=== PATIENT | female | born 1930 | race Caucasian/White ===

== ENCOUNTER 2019-11-08 19:12 | Emergency (ER) | payer MEDICARE, BC ==
--- NOTE | 2019-11-08 19:29 | EDM.PDOC ---
ED HPI GENERAL MEDICAL PROBLEM - General Chief Complaint: Trauma Stated Complaint: AMBULANCE Time Seen by Provider: 11/08/19 19:25 Source of Information: Reports: Patient, EMS History Limitations: Reports: No Limitations - History of Present Illness INITIAL COMMENTS - FREE TEXT/NARRATIVE: EMS arrived @ scene with pt lying on back. told by family pt fell and rolled her onto her back. pt states was closing curtain and lost balance and fell and hit head on something. denies LOC c/o pain right side of head and legs too. daughter arrived state pt was closing curtain and fell hitting right side of head on coffee table and broke the wooden part but not the glass. was found lying on right side and gently rolled her onto her back and called EMS. - Related Data Allergies Allergy/AdvReac Type Severity Reaction Status Date / Time cefdinir [From Omnicef] Allergy Diarrhea Verified 09/12/18 11:15 cefditoren [From Spectracef] Allergy Diarrhea Verified 09/12/18 11:15 ciprofloxacin Allergy Diarrhea Verified 09/12/18 11:15 desloratadine [From Clarinex] Allergy Vomiting Verified 09/12/18 11:15 diltiazem Allergy Cannot Verified 09/12/18 13:56 Remember fexofenadine [From Anette] Allergy Cannot Verified 09/12/18 11:15 Remember latex Allergy Rash Verified 09/12/18 11:15 phenoperidine Allergy Headache Verified 09/12/18 11:15 Sulfa (Sulfonamide Allergy Rash Verified 09/12/18 11:15 Antibiotics) yellow dye Allergy Cannot Verified 09/12/18 11:15 Remember Vitamin B6 Allergy Hives Uncoded 09/12/18 11:15 Home Meds: Home Meds Aspirin 325 mg PO DAILY 09/12/18 [History] Clopidogrel Bisulfate [Clopidogrel] 75 mg PO DAILY 09/12/18 [History] Cyanocobalamin (Vitamin B-12) [Cyanocobalamin Injection] 1,000 mcg IJ ASDIRECTED 09/12/18 [History] Losartan [Cozaar] 100 mg PO DAILY 09/12/18 [History] Metoprolol Succinate [Toprol XL] 200 mg PO DAILY 09/12/18 [History] Omeprazole 20 mg PO DAILY 09/12/18 [History] atorvaSTATin [Lipitor] 20 mg PO BEDTIME 09/12/18 [History] Acetaminophen [Tylenol] 650 mg PO Q4H PRN #30 tablet 09/14/18 [Rx] Acetaminophen/HYDROcodone [[place] 325-10 MG] 0.5 tab PO Q4H PRN #10 tablet [Rx] Lidocaine 5% [Lidoderm 5%] 1 patch TOP DAILY #7 patch 09/14/18 [Rx] Past Medical History HEENT History: Reports: Cataract Cardiovascular History: Reports: High Cholesterol, Hypertension Respiratory History: Reports: None Gastrointestinal History: Reports: Hemorrhoids Genitourinary History: Reports: UTI, Recurrent Other Genitourinary History: only right kidney works, 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 SLAB TRIPPER History: Reports: None Musculoskeletal History: Reports: Arthritis Neurological History: Reports: None Psychiatric History: Reports: None Endocrine/Metabolic History: Reports: None Hematologic History: Reports: None Immunologic History: Reports: None Oncologic (Cancer) History: Reports: None - Infectious Disease History Infectious Disease History: Reports: Shingles - Past Surgical History Head Surgeries/Procedures: Reports: None HEENT Surgical History: Reports: Cataract Surgery, Naso-Sinus Surgery, Tonsillectomy, Other (See Below) Other HEENT Surgeries/Procedures: new ear drum, patched ear drum, Cardiovascular Surgical History: Reports: Other (See Below) Other Cardiovascular Surgeries/Procedures: stenosis surgery GI Surgical History: Reports: Appendectomy, Hernia, Abdominal, Other (See Below) Other GI Surgeries/Procedures: hemorroid surgery Female Surgical History: Reports: Hysterectomy, Other (See Below) Other Female Surgeries/Procedures: bladder repair Musculoskeletal Surgical History: Reports: Carpal Tunnel, Other (See Below) Other Musculoskeletal Surgeries/Procedures:: toe surgery, knee surgery, fluid on knee, cyst on ankle, broken wrist, broken arm Dermatological Surgical History: Reports: Skin Biopsy Social & Family History - Family History Family Medical History: Noncontributory - Caffeine Use Caffeine Use: Reports: Coffee Review of Systems - Review of Systems Review Of Systems: Comprehensive ROS is negative, except as noted in HPI. ED EXAM, GENERAL - Physical Exam Exam: See Below Exam Limited By: No Limitations General Appearance: Alert, WD/WN, No Apparent Distress Eye Exam: Bilateral Eye: PERRL (pupils ER @ 3mm) Ears: Hearing Grossly Normal Throat/Mouth: Normal Voice, No Airway Compromise Head: Other (no O/B, ) Neck: Other (in C-collar) Respiratory/Chest: No Respiratory Distress, Lungs Clear, Normal Breath Sounds, Chest Non-Tender Cardiovascular: Regular Rate, Rhythm GI/Abdominal: Soft, Non-Tender Extremities: Other (some pelvic discomfort bilaterally,) Neurological: Alert, Oriented, Normal Cognition, No Motor/Sensory Deficits Psychiatric: Normal Affect, Normal Mood Skin Exam: Warm, Dry, Normal Color Lymphatic: No Adenopathy Course - Orders/Labs/Meds Orders: Active Orders 24 hr Category Date Time Status EKG 12 Lead [EKG Documentation Completion] [RC] STAT Care 11/08/19 19:22 Active Cervical Spine wo Cont [CT] Urgent Exams 11/08/19 19:21 Taken Chest 1V Frontal [CR] Urgent Exams 11/08/19 19:21 Taken Head wo Cont [CT] Urgent Exams 11/08/19 19:21 Taken Pelvis wo Cont [CT] Urgent Exams 11/08/19 19:21 Taken Labs: Laboratory Tests 11/08/19 11/08/19 Range/Units 19:20 19:20 WBC 9.0 (5.0-10.0) 10^3/uL RBC 3.83 L (4.2-5.4) 10^6/uL Hgb 8.4 L D (12.0-16.0) g/dL Hct 28.1 L (37.0-47.0) % MCV 73.4 L D (80-100) fL MCH 21.9 L (27.0-34.0) pg MCHC 29.9 L (33.0-35.0) g/dL Plt Count 341 D (150-450) 10^3/uL Neut % (Auto) 84.6 H (42.2-75.2) % Lymph % (Auto) 10.1 L (20.5-50.1) % [place] % (Auto) 3.9 (2-8) % Eos % (Auto) 1.2 (1.0-3.0) % Baso % (Auto) 0.2 (0.0-1.0) % Sodium 134 L (135-145) mmol/L Potassium 3.9 (3.6-5.0) mmol/L Chloride 98 L (101-111) mmol/L Carbon Dioxide 25.0 (21.0-31.0) mmol/L Anion Gap 14.9 BUN 40 H (7-18) mg/dL Creatinine 1.1 (0.6-1.3) mg/dL Est Cr Clr Drug Dosing TNP Estimated GFR (MDRD) 47 BUN/Creatinine Ratio 36.36 Glucose 182 H (74-105) mg/dL Calcium 8.1 L (8.4-10.2) mg/dl Total Bilirubin 0.5 (0.2-1.0) mg/dL AST 17 (10-42) IU/L ALT 14 (10-60) IU/L Alkaline Phosphatase 50 (42-121) IU/L Troponin I < 0.02 (0.00-0.02) ng/ml Total Protein 5.9 L (6.7-8.2) g/dl Albumin 2.4 L (3.2-5.5) g/dl Globulin 3.5 Albumin/Globulin Ratio 0.69 - Re-Assessments/Exams Free Text/Narrative Re-Assessment/Exam: 11/08/19 20:09 results discussed with daughter who states will try to contact PMD in attempt to admit pt to [facility] Departure - Departure Time of Disposition: 20:10 Disposition: Home, Self-Care 01 Condition: Good Clinical Impression: Contusion of parietal region of scalp Qualifiers: Encounter type: initial encounter Qualified Code(s): S00.03XA - Contusion of scalp, initial encounter - Discharge Information Instructions: Head Injury, Adult, [id number] Forms: ED Department Discharge Additional Instructions: 1) follow up with family doctor 2) return if there is any change or concern Sepsis Event Note - Focused Exam Date Exam was Performed: 11/08/19 Time Exam was Performed: 20:09 - My Orders Last 24 Hours: My Active Orders 11/08/19 19:21 Cervical Spine wo Cont [CT] Urgent Chest 1V Frontal [CR] Urgent Head wo Cont [CT] Urgent Pelvis wo Cont [CT] Urgent 11/08/19 19:22 EKG 12 Lead [EKG Documentation Completion] [RC] STAT - Assessment/Plan Last 24 Hours: My Active Orders 11/08/19 19:21 Cervical Spine wo Cont [CT] Urgent Chest 1V Frontal [CR] Urgent Head wo Cont [CT] Urgent Pelvis wo Cont [CT] Urgent 11/08/19 19:22 EKG 12 Lead [EKG Documentation Completion] [RC] STAT
[2019-11-08 19:42] LABS: ANION GAP 14.9; CHLORIDE,CL 98 mmol/L (101-111); SODIUM,NA 134 mmol/L (135-145)
== END 2019-11-08 20:18 | disposition home or self-care (01) ==
LOC: DL.ED 19:12
DX: S00.03XA Contusion of scalp, initial encounter (principal); W19.XXXA Unspecified fall, initial encounter; Z88.2 Allergy status to sulfonamides; Z88.8 Allergy status to other drugs, medicaments and biological substances; Z88.1 Allergy status to other antibiotic agents; Z91.040 Latex allergy status; Z79.82 Long term (current) use of aspirin; Z79.899 Other long term (current) drug therapy; E78.00 Pure hypercholesterolemia, unspecified; I10 Essential (primary) hypertension; Z87.440 Personal history of urinary (tract) infections; M19.90 Unspecified osteoarthritis, unspecified site; Z90.710 Acquired absence of both cervix and uterus
CPT/HCPCS: 36415; 70450; 71045; 72125; 72192; 80053; 84484; 85025; 99283; 99285-25

== ENCOUNTER 2019-11-28 10:50 | Emergency (ER) | payer MEDICARE, BC ==
[2019-11-28 10:44] LABS: ANION GAP 12.4; CHLORIDE,CL 102 mmol/L (101-111); SODIUM,NA 135 mmol/L (135-145)
--- NOTE | 2019-11-28 10:53 | EDM.PDOC ---
ED HPI GENERAL MEDICAL PROBLEM - General Stated Complaint: UNKNOWN-AMBULANCE Time Seen by Provider: 11/28/19 10:25 Source of Information: Reports: Patient, EMS History Limitations: Reports: No Limitations - History of Present Illness INITIAL COMMENTS - FREE TEXT/NARRATIVE: This 89 yo female patient was brought to the ED by [facility] due to a fall. According to the patient, she was sitting in a chair last night, fell asleep and his her forehead on the counter. The patient does not believe that she was knocked out during the incident. The patient reports she was unable to get off the floor all night. The patient does not know why she couldn't get up. The patient reports pain in her forehead and in her mid back. The patient denies any recent illnesses or injuries. Onset Date: 11/27/19 Duration: Constant Location: Reports: Other Quality: Reports: Other Severity: Moderate Improves with: Reports: None Worsens with: Reports: None Context: Reports: Other Associated Symptoms: Reports: No Other Symptoms - Related Data Allergies Allergy/AdvReac Type Severity Reaction Status Date / Time cefdinir [From Omnicef] Allergy Diarrhea Verified 11/08/19 20:21 cefditoren [From Spectracef] Allergy Diarrhea Verified 11/08/19 20:21 ciprofloxacin Allergy Diarrhea Verified 11/08/19 20:21 desloratadine [From Clarinex] Allergy Vomiting Verified 11/08/19 20:21 diltiazem Allergy Cannot Verified 11/08/19 20:21 Remember fexofenadine [From Anette] Allergy Cannot Verified 11/08/19 20:21 Remember latex Allergy Rash Verified 11/08/19 20:21 phenoperidine Allergy Headache Verified 11/08/19 20:21 Sulfa (Sulfonamide Allergy Rash Verified 11/08/19 20:21 Antibiotics) yellow dye Allergy Cannot Verified 11/08/19 20:21 Remember Vitamin B6 Allergy Hives Uncoded 11/08/19 20:21 Home Meds: Home Meds Aspirin 81 mg PO DAILY 09/12/18 [History] Clopidogrel Bisulfate [Clopidogrel] 75 mg PO DAILY 09/12/18 [History] Cyanocobalamin (Vitamin B-12) [Cyanocobalamin Injection] 1,000 mcg IJ ASDIRECTED 09/12/18 [History] Losartan [Cozaar] 100 mg PO DAILY 09/12/18 [History] Metoprolol Succinate [Toprol XL] 200 mg PO DAILY 09/12/18 [History] Omeprazole 20 mg PO DAILY 09/12/18 [History] atorvaSTATin [Lipitor] 20 mg PO BEDTIME 09/12/18 [History] Acetaminophen [Tylenol] 650 mg PO Q4H PRN #30 tablet 09/14/18 [Rx] Acetaminophen/HYDROcodone [[place] 325-10 MG] 0.5 tab PO Q4H PRN #10 tablet [Rx] DULoxetine [Cymbalta] 30 mg PO DAILY 11/08/19 [History] Fluticasone Propionate [Flonase] 1 spray NS DAILY 11/08/19 [History] Iron,Carbonyl/Ascorbic Acid [Iron 100-Vitamin C Tablet] 1 each PO DAILY [History] Sennosides/Docusate Sodium [Senna-Docusate Sodium Tablet] 1 tab PO DAILY [History] Past Medical History HEENT History: Reports: Cataract Cardiovascular History: Reports: High Cholesterol, Hypertension Respiratory History: Reports: None Gastrointestinal History: Reports: Hemorrhoids Genitourinary History: Reports: UTI, Recurrent Other Genitourinary History: only right kidney works, 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 LONG TERM CARE PHLEBOTOMIST History: Reports: None Musculoskeletal History: Reports: Arthritis Neurological History: Reports: None Psychiatric History: Reports: None Endocrine/Metabolic History: Reports: None Hematologic History: Reports: None Immunologic History: Reports: None Oncologic (Cancer) History: Reports: None - Infectious Disease History Infectious Disease History: Reports: Shingles - Past Surgical History Head Surgeries/Procedures: Reports: None HEENT Surgical History: Reports: Cataract Surgery, Naso-Sinus Surgery, Tonsillectomy, Other (See Below) Other HEENT Surgeries/Procedures: new ear drum, patched ear drum, Cardiovascular Surgical History: Reports: Other (See Below) Other Cardiovascular Surgeries/Procedures: stenosis surgery GI Surgical History: Reports: Appendectomy, Hernia, Abdominal, Other (See Below) Other GI Surgeries/Procedures: hemorroid surgery Female Surgical History: Reports: Hysterectomy, Other (See Below) Other Female Surgeries/Procedures: bladder repair Musculoskeletal Surgical History: Reports: Carpal Tunnel, Other (See Below) Other Musculoskeletal Surgeries/Procedures:: toe surgery, knee surgery, fluid on knee, cyst on ankle, broken wrist, broken arm Dermatological Surgical History: Reports: Skin Biopsy Social & Family History - Family History Family Medical History: Noncontributory - Caffeine Use Caffeine Use: Reports: Coffee Review of Systems - Review of Systems Review Of Systems: Comprehensive ROS is negative, except as noted in HPI. ED EXAM, GENERAL - Physical Exam Exam: See Below Exam Limited By: No Limitations General Appearance: Alert, WD/WN, Moderate Distress Eye Exam: Bilateral Eye: EOMI, Normal Inspection, PERRL Ears: Normal External Exam, Normal Canal, Hearing Grossly Normal, Normal TMs Nose: Normal Inspection, Normal Mucosa, No Blood Throat/Mouth: Normal Inspection, Normal Lips, Normal Teeth, Normal Gums, Normal Oropharynx, Normal Voice, No Airway Compromise Head: Other (contusion to the left forehead) Neck: Other (the patient was placed in a c-collar by EMS) Respiratory/Chest: No Respiratory Distress, Lungs Clear, Normal Breath Sounds, No Accessory Muscle Use, Chest Non-Tender Cardiovascular: Normal Peripheral Pulses, Regular Rate, Rhythm, No Edema, No Gallop, No JVD, No Murmur, No Rub GI/Abdominal: Normal Bowel Sounds, Soft, Non-Tender, No Organomegaly, No Distention, No Abnormal Bruit, No Mass (Female) Exam: Deferred Rectal (Female) Exam: Deferred Back Exam: Normal Inspection, Full Range of Motion, NT Extremities: Normal Inspection, Normal Range of Motion, Non-Tender, Normal Capillary Refill, No Pedal Edema Neurological: Alert, Oriented, CN II-XII Intact, Normal Cognition Psychiatric: Normal Affect, Normal Mood Skin Exam: Warm, Dry, Intact, Normal Color, No Rash Lymphatic: No Adenopathy Course - Orders/Labs/Meds Orders: Active Orders 24 hr Category Date Time Status EKG Documentation Completion [RC] URGENT Care 11/28/19 09:59 Ordered CULTURE BLOOD [BC] Stat Lab 11/28/19 09:59 Ordered CULTURE URINE [RM] Urgent Lab 11/28/19 10:28 Received Labs: Laboratory Tests 11/28/19 11/28/19 11/28/19 Range/Units 10:14 10:14 10:14 WBC (5.0-10.0) 10^3/uL RBC (4.2-5.4) 10^6/uL Hgb (12.0-16.0) g/dL Hct (37.0-47.0) % MCV (80-100) fL MCH (27.0-34.0) pg MCHC (33.0-35.0) g/dL Plt Count (150-450) 10^3/uL Neut % (Auto) (42.2-75.2) % Lymph % (Auto) (20.5-50.1) % [place] % (Auto) (2-8) % Eos % (Auto) (1.0-3.0) % Baso % (Auto) (0.0-1.0) % PT 10.4 (9.0-12.0) SEC INR 1.0 (0.9-1.2) Sodium (135-145) mmol/L Potassium (3.6-5.0) mmol/L Chloride (101-111) mmol/L Carbon Dioxide (21.0-31.0) mmol/L Anion Gap BUN (7-18) mg/dL Creatinine (0.6-1.3) mg/dL Est Cr Clr Drug Dosing Estimated GFR (MDRD) BUN/Creatinine Ratio Glucose (74-105) mg/dL Lactic Acid 1.2 (0.5-2.0) mmol/L Calcium (8.4-10.2) mg/dl Total Bilirubin (0.2-1.0) mg/dL AST (10-42) IU/L ALT (10-60) IU/L Alkaline Phosphatase (42-121) IU/L Creatine Kinase 24 L (26-174) IU/L Troponin I (0.00-0.02) ng/ml Total Protein (6.7-8.2) g/dl Albumin (3.2-5.5) g/dl Globulin Albumin/Globulin Ratio Urine Color (YELLOW) Urine Appearance (CLEAR) Urine pH (5.0-9.0) Ur Specific [place] (1.005-1.030) Urine Protein (NEGATIVE) Urine Glucose (UA) (NEGATIVE) Urine Ketones (NEGATIVE) Urine Occult Blood (NEGATIVE) Urine Nitrite (NEGATIVE) Urine Bilirubin (NEGATIVE) Urine Urobilinogen (0.2-1.0) mg/dL Ur Leukocyte Esterase (NEGATIVE) Urine RBC /HPF Urine WBC (0-5/HPF) /HPF Ur Epithelial Cells (NOT SEEN) /HPF Urine Bacteria (0-FEW/HPF) /HPF Urine Mucus (NOT SEEN) /LPF 11/28/19 11/28/19 11/28/19 Range/Units 10:14 10:14 10:28 WBC 7.6 (5.0-10.0) 10^3/uL RBC 4.38 (4.2-5.4) 10^6/uL Hgb 9.6 L (12.0-16.0) g/dL Hct 31.8 L (37.0-47.0) % MCV 72.6 L (80-100) fL MCH 21.9 L (27.0-34.0) pg MCHC 30.2 L (33.0-35.0) g/dL Plt Count 373 (150-450) 10^3/uL Neut % (Auto) 81.9 H (42.2-75.2) % Lymph % (Auto) 11.5 L (20.5-50.1) % [place] % (Auto) 4.8 (2-8) % Eos % (Auto) 1.7 (1.0-3.0) % Baso % (Auto) 0.1 (0.0-1.0) % PT (9.0-12.0) SEC INR (0.9-1.2) Sodium 135 (135-145) mmol/L Potassium 4.4 (3.6-5.0) mmol/L Chloride 102 (101-111) mmol/L Carbon Dioxide 25.0 (21.0-31.0) mmol/L Anion Gap 12.4 BUN 27 H (7-18) mg/dL Creatinine 0.8 (0.6-1.3) mg/dL Est Cr Clr Drug Dosing TNP Estimated GFR (MDRD) > 60 BUN/Creatinine Ratio 33.75 Glucose 89 (74-105) mg/dL Lactic Acid (0.5-2.0) mmol/L Calcium 8.5 (8.4-10.2) mg/dl Total Bilirubin 0.6 (0.2-1.0) mg/dL AST 19 (10-42) IU/L ALT 14 (10-60) IU/L Alkaline Phosphatase 63 (42-121) IU/L Creatine Kinase (26-174) IU/L Troponin I < 0.02 (0.00-0.02) ng/ml Total Protein 6.0 L (6.7-8.2) g/dl Albumin 2.5 L (3.2-5.5) g/dl Globulin 3.5 Albumin/Globulin Ratio 0.71 Urine Color Yellow (YELLOW) Urine Appearance Slightly cloudy (CLEAR) Urine pH 6.5 (5.0-9.0) Ur Specific [place] 1.025 (1.005-1.030) Urine Protein Negative (NEGATIVE) Urine Glucose (UA) Negative (NEGATIVE) Urine Ketones Negative (NEGATIVE) Urine Occult Blood Negative (NEGATIVE) Urine Nitrite Negative (NEGATIVE) Urine Bilirubin Negative (NEGATIVE) Urine Urobilinogen 0.2 (0.2-1.0) mg/dL Ur Leukocyte Esterase Small H (NEGATIVE) Urine RBC Not seen /HPF Urine WBC 10-20 H (0-5/HPF) /HPF Ur Epithelial Cells Moderate H (NOT SEEN) /HPF Urine Bacteria Rare (0-FEW/HPF) /HPF Urine Mucus Not seen (NOT SEEN) /LPF Departure - Departure Time of Disposition: 12:43 Disposition: Home, Self-Care 01 Condition: Fair Clinical Impression: Syncope Qualifiers: Syncope type: unspecified Qualified Code(s): R55 - Syncope and collapse Forehead contusion Qualifiers: Encounter type: initial encounter Qualified Code(s): S00.83XA - Contusion of other part of head, initial encounter - Discharge Information *PRESCRIPTION DRUG MONITORING PROGRAM REVIEWED*: Not Applicable *COPY OF PRESCRIPTION DRUG MONITORING REPORT IN PATIENT [place]: Not Applicable Instructions: Facial or Scalp Contusion, Syncope, [id number] Forms: ED Department Discharge Care Plan Goals: The patient and family were advised of the examination, lab, EKG and CT results during the visit. The patient was encouraged to rest and relax. The patient was also encouraged to use her life alarm for assistance. If the patient has any additional symptoms or concerns, the patient should either return to the emergency department or visit her primary care facility. Sepsis Event Note - Focused Exam Date Exam was Performed: 11/28/19 Time Exam was Performed: 12:43 - My Orders Last 24 Hours: My Active Orders 11/28/19 09:59 EKG Documentation Completion [RC] URGENT CULTURE BLOOD [BC] Stat 11/28/19 10:28 CULTURE URINE [RM] Urgent - Assessment/Plan Last 24 Hours: My Active Orders 11/28/19 09:59 EKG Documentation Completion [RC] URGENT CULTURE BLOOD [BC] Stat 11/28/19 10:28 CULTURE URINE [RM] Urgent
== END 2019-11-28 13:00 | disposition home or self-care (01) ==
LOC: DL.ED 10:50
DX: S00.83XA Contusion of other part of head, initial encounter (principal); R55 Syncope and collapse; I10 Essential (primary) hypertension; Z88.1 Allergy status to other antibiotic agents; Z88.2 Allergy status to sulfonamides; Z91.018 Allergy to other foods; Z91.040 Latex allergy status; Z88.8 Allergy status to other drugs, medicaments and biological substances; Z79.82 Long term (current) use of aspirin; Z79.899 Other long term (current) drug therapy; Z98.49 Cataract extraction status, unspecified eye; Z98.890 Other specified postprocedural states; Z90.710 Acquired absence of both cervix and uterus; Z90.49 Acquired absence of other specified parts of digestive tract; W07.XXXA Fall from chair, initial encounter
CPT/HCPCS: 36415; 70450; 70486; 72125; 80053; 81001; 82550; 83605; 84484; 85025; 85610; 87040; 87086; 93005; 99283; 99285-25

== ENCOUNTER 2020-09-02 09:26 | Emergency (ER) | payer MEDICARE, BC, MEDICAID ==
--- NOTE | 2020-09-02 09:26 | EDM.PDOC ---
ED HPI GENERAL MEDICAL PROBLEM - General Chief Complaint: Syncope Stated Complaint: AMBULANCE Time Seen by Provider: 09/02/20 09:40 Source of Information: Reports: Patient, EMS, EMS Notes Reviewed, RN, RN Notes Reviewed History Limitations: Reports: Altered Mental Status - History of Present Illness INITIAL COMMENTS - FREE TEXT/NARRATIVE: Patient presents to the ED via EMS with complaints of syncope. Per EMS patient experienced a fall with positive LOC while walking to breakfast. She did hit her head; she is on Plavix for history of Atrial Fib. The patient presents confused with a GCS of 14; she is unable to provide a history. Trauma Notes: Fall at [facility]; Positive LOC; In SVT upon arrival Arrival Time: 925 C-Collar Status: Applied Spinal Board/Immobilization Status: Not applied GCS on Arrival: 14 Primary Trauma Survey (929) Airway: Patent nasal and oral airways. Breathing: Spontaneous respirations with clear bilateral breath sounds. Circulation: Heart RRR, intact distal pulses to all four extremities, no cyanosis. Deformity/Disability: No active bleeding. No long bone deformities. No neuro logical deficits. Abdomen benign to exam. Exposure: Skin warm and dry. Right Head Pain Score (Numeric/FACES): 4 - Related Data Allergies Allergy/AdvReac Type Severity Reaction Status Date / Time cefdinir [From Omnicef] Allergy Diarrhea Verified 09/02/20 10:58 cefditoren [From Spectracef] Allergy Diarrhea Verified 09/02/20 10:58 ciprofloxacin Allergy Diarrhea Verified 09/02/20 10:58 desloratadine [From Clarinex] Allergy Vomiting Verified 09/02/20 10:58 diltiazem Allergy Cannot Verified 09/02/20 10:58 Remember fexofenadine [From Anette] Allergy Cannot Verified 09/02/20 10:58 Remember latex Allergy Rash Verified 09/02/20 10:58 phenoperidine Allergy Headache Verified 09/02/20 10:58 Sulfa (Sulfonamide Allergy Rash Verified 09/02/20 10:58 Antibiotics) yellow dye Allergy Cannot Verified 09/02/20 10:58 Remember Vitamin B6 Allergy Hives Uncoded 09/02/20 10:58 Home Meds: Home Meds Aspirin 81 mg PO DAILY 09/12/18 [History] Clopidogrel Bisulfate [Clopidogrel] 75 mg PO DAILY 09/12/18 [History] Cyanocobalamin (Vitamin B-12) [Cyanocobalamin Injection] 1,000 mcg IJ ASDIRECTED 09/12/18 [History] Losartan [Cozaar] 100 mg PO DAILY 09/12/18 [History] Metoprolol Succinate [Toprol XL] 200 mg PO DAILY 09/12/18 [History] atorvaSTATin [Lipitor] 10 mg PO BEDTIME 09/12/18 [History] Acetaminophen [Tylenol] 650 mg PO Q4H PRN #30 tablet 09/14/18 [Rx] DULoxetine [Cymbalta] 30 mg PO DAILY 11/08/19 [History] Fluticasone Propionate [Flonase] 1 spray NS DAILY 11/08/19 [History] Iron,Carbonyl/Ascorbic Acid [Iron 100-Vitamin C Tablet] 1 each PO DAILY 11/08/19 [History] Sennosides/Docusate Sodium [Senna-Docusate Sodium Tablet] 2 tab PO DAILY 11/08/19 [History] Acetaminophen/HYDROcodone [[place] 325-10 MG] 500 mg PO Q4H PRN 02/01/20 [History] Acetaminophen [Tylenol Arthritis Pain] 650 mg PO BID 09/02/20 [History] Acetaminophen/HYDROcodone [[place] 325-10 MG] 1 tab PO DAILY 09/02/20 [History] Dextran 70/Hypromellose/PF [Artificial Tears Drops] 1 each EYEBOTH BID 09/02/20 [History] Lactulose 10 gm PO BEDTIME 09/02/20 [History] Levothyroxine Sodium [Synthroid] 12.5 mcg PO ACBREAKFAST 09/02/20 [History] Pantoprazole Sodium [Protonix] 40 mg PO DAILY 09/02/20 [History] Past Medical History HEENT History: Reports: Cataract Cardiovascular History: Reports: High Cholesterol, Hypertension, HI Respiratory History: Reports: None Gastrointestinal History: Reports: GERD, Hemorrhoids Genitourinary History: Reports: UTI, Recurrent Other Genitourinary History: only right kidney works, 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 COMPENSATION AND BENEFITS MANAGER History: Reports: None Musculoskeletal History: Reports: Arthritis Neurological History: Reports: None Psychiatric History: Reports: None Endocrine/Metabolic History: Reports: None Hematologic History: Reports: None Immunologic History: Reports: None Oncologic (Cancer) History: Reports: None Dermatologic History: Reports: Other (See Below) - Infectious Disease History Infectious Disease History: Reports: Chicken Pox - Past Surgical History Head Surgeries/Procedures: Reports: None HEENT Surgical History: Reports: Cataract Surgery, Naso-Sinus Surgery, Tonsillectomy, Other (See Below) Other HEENT Surgeries/Procedures: new ear drum, patched ear drum, Cardiovascular Surgical History: Reports: Other (See Below) Other Cardiovascular Surgeries/Procedures: stenosis surgery GI Surgical History: Reports: Appendectomy, Hernia, Abdominal, Other (See Below) Other GI Surgeries/Procedures: hemorroid surgery Female Surgical History: Reports: Hysterectomy, Other (See Below) Other Female Surgeries/Procedures: bladder repair Musculoskeletal Surgical History: Reports: Carpal Tunnel, Other (See Below) Other Musculoskeletal Surgeries/Procedures:: toe surgery, knee surgery, fluid on knee, cyst on ankle, broken wrist, broken arm Dermatological Surgical History: Reports: Skin Biopsy Social & Family History - Family History Family Medical History: Noncontributory - Caffeine Use Caffeine Use: Reports: Coffee, Tea ED ROS GENERAL - Review of Systems Review Of Systems: Comprehensive ROS is negative, except as noted in HPI. - Physical Exam Exam: See Below Exam Limited By: Altered Mental Status General Appearance: Alert, WD/WN, Mild Distress Eye Exam: Bilateral Eye: EOMI, PERRL Head Exam: Scalp Swelling, Scalp Hematoma (R lateral/anterior), Scalp Tenderness Neck: Normal Inspection, Supple, Non-Tender Respiratory/Chest: Normal Breath Sounds, No Accessory Muscle Use Cardiovascular: No Gallop, No Murmur, No Rub, Tachycardia (Female) Exam: Deferred Rectal (Female) Exam: Deferred Neuro Exam (Abbreviated): Confused, Disoriented, Slow to Respond Extremities: Arm Pain (Left hand/wrist) Skin Exam: Warm, Dry, Intact #1 Interpretation EKG Date: 09/02/20 Time: 09:43 Rhythm: Other (SVT) Rate (Beats/Min): 160 [place]: Normal P-Wave: Present QRS: Normal ST-T: Normal QT: Normal EKG Interpretation Comments: SVT; Will repeat when rhythm slows #2 Interpretation EKG Date: 09/02/20 Time: 10:28 Rhythm: NSR Rate (Beats/Min): 97 [place]: Normal P-Wave: Present QRS: Normal ST-T: Normal QT: Normal Comparison: No Change (NSR; No evidence of acute ischemia) Course - Vital Signs Last Recorded V/S: Last Vital Signs Temp 97.3 F 09/02/20 09:45 Pulse 150 H 09/02/20 09:55 Resp 16 09/02/20 09:45 BP 165/71 H 09/02/20 09:55 Pulse Ox 97 09/02/20 09:45 - Orders/Labs/Meds Orders: Active Orders 24 hr Category Date Time Status EKG Documentation Completion [RC] STAT Care 09/02/20 09:30 Active EKG Documentation Completion [RC] STAT Care 09/02/20 10:20 Active Chest 1V Frontal [CR] Urgent Exams 09/02/20 09:33 Taken CULTURE BLOOD [BC] Stat Lab 09/02/20 09:40 Received UA W/BING RFLX IF INDICATED [URIN] Stat Lab 09/02/20 09:30 Ordered Labs: Laboratory Tests 09/02/20 09/02/20 09/02/20 Range/Units 09:40 09:40 09:40 WBC 10.4 H (5.0-10.0) 10^3/uL RBC 4.05 L (4.2-5.4) 10^6/uL Hgb 10.0 L (12.0-16.0) g/dL Hct 32.5 L (37.0-47.0) % MCV 80.2 D (80-100) fL MCH 24.7 L (27.0-34.0) pg MCHC 30.8 L (33.0-35.0) g/dL Plt Count 351 (150-450) 10^3/uL Neut % (Auto) 73.9 (42.2-75.2) % Lymph % (Auto) 14.8 L (20.5-50.1) % [place] % (Auto) 6.9 (2-8) % Eos % (Auto) 4.2 H (1.0-3.0) % Baso % (Auto) 0.2 (0.0-1.0) % PT 10.4 (9.0-12.0) SEC INR 1.1 (0.9-1.2) APTT 24.1 (22.0-34.0) SEC Sodium 138 (136-145) mmol/L Potassium 3.4 L (3.5-5.1) mmol/L Chloride 101 (98-107) mmol/L Carbon Dioxide 28 (21-32) mmol/L Anion Gap 12.4 (7-13) mEq/L BUN 17 (7-18) mg/dL Creatinine 0.82 (0.55-1.02) mg/dL Est Cr Clr Drug Dosing 32.45 mL/min Estimated GFR (MDRD) > 60 BUN/Creatinine Ratio 20.7 (No establ ref range) Glucose 127 H (74-99) mg/dL Lactic Acid (0.4-2.0) mmol/L Calcium 8.9 (8.5-10.1) mg/dL Total Bilirubin 0.4 (0.2-1.0) mg/dL AST 19 (15-37) U/L ALT 13 L (14-59) U/L Alkaline Phosphatase 107 (46-116) U/L Troponin I 0.030 (0.000-0.056) ng/mL Total Protein 7.0 (6.4-8.2) g/dL Albumin 2.3 L (3.4-5.0) g/dL Globulin 4.7 Albumin/Globulin Ratio 0.49 SARS CoV-2 RNA Rapid [facility] (NEGATIVE) 09/02/20 09/02/20 Range/Units 09:40 10:19 WBC (5.0-10.0) 10^3/uL RBC (4.2-5.4) 10^6/uL Hgb (12.0-16.0) g/dL Hct (37.0-47.0) % MCV (80-100) fL MCH (27.0-34.0) pg MCHC (33.0-35.0) g/dL Plt Count (150-450) 10^3/uL Neut % (Auto) (42.2-75.2) % Lymph % (Auto) (20.5-50.1) % [place] % (Auto) (2-8) % Eos % (Auto) (1.0-3.0) % Baso % (Auto) (0.0-1.0) % PT (9.0-12.0) SEC INR (0.9-1.2) APTT (22.0-34.0) SEC Sodium (136-145) mmol/L Potassium (3.5-5.1) mmol/L Chloride (98-107) mmol/L Carbon Dioxide (21-32) mmol/L Anion Gap (7-13) mEq/L BUN (7-18) mg/dL Creatinine (0.55-1.02) mg/dL Est Cr Clr Drug Dosing mL/min Estimated GFR (MDRD) BUN/Creatinine Ratio (No establ ref range) Glucose (74-99) mg/dL Lactic Acid 2.9 H* (0.4-2.0) mmol/L Calcium (8.5-10.1) mg/dL Total Bilirubin (0.2-1.0) mg/dL AST (15-37) U/L ALT (14-59) U/L Alkaline Phosphatase (46-116) U/L Troponin I (0.000-0.056) ng/mL Total Protein (6.4-8.2) g/dL Albumin (3.4-5.0) g/dL Globulin Albumin/Globulin Ratio SARS CoV-2 RNA Rapid [facility] Negative (NEGATIVE) Meds: Medications Discontinued Medications Generic Name Dose Route Start Last Admin Trade Name Freq PRN Reason Stop Dose Admin Metoprolol Tartrate 2.5 mg 09/02/20 09:46 09/02/20 09:55 Lopressor IVPUSH 09/02/20 09:47 2.5 mg ONETIME ONE Administration - Radiology Interpretation Free Text/Narrative:: [facility] Final Radiology Report Call: [phone] assistance Online chat: [email or web address] Name: YARA ROMANO Age: 89Years F Date: 09/02/2020 SSN: -- : [id number] Study: CT CERVICAL SPINE WO CONT Requesting Physician: Gabriela Will Images: [id number] Addl Studies: Provided Clinical History: Syncopal event Contrast: Without Contrast Medium: Contrast Amount: Contrast Method: Page 1 of 2 PROCEDURE INFORMATION: Exam: CT Cervical Spine Without Contrast Exam date and time: 09/02/2020 10:07 AM Age: 89 years old Clinical indication: Injury or trauma; Fall; Blunt trauma; Additional info: Syncopal event TECHNIQUE: Imaging protocol: Computed tomography images of the cervical spine without contrast. Radiation optimization: All CT scans at this facility use at least one of these dose optimization techniques: automated exposure control; mA and/or kV adjustment per patient size (includes targeted exams where dose is matched to clinical indication); or iterative reconstruction. COMPARISON: CT Cervical Spine wo Cont 11/28/2019 10:32 AM FINDINGS: Vertebrae: Hypertrophic changes are present involving the dens and anterior arch of C1. Discs/Spinal canal/Neural foramina: Moderate to marked disc space narrowing C2- C6 with small anterior and posterior osteophytes. Soft tissues: Unremarkable. Sinuses: Mild mucoperiosteal thickening of the paranasal sinuses. Nasopharynx: There have been bilateral nasal antral windows. Lungs: Masslike scarring in the lung apices. IMPRESSION: No evidence of cervical spine fracture. Remainder of findings as described above. Thank you for allowing us to participate in the care of your patient. YARA ROMANO | Final Radiology Report CONFIDENTIALITY STATEMENT This report is intended only for use by the referring physician, and only in accordance with law. If you received this in error, call [phone]. Page 2 of 2 Dictated and Authenticated by: Emily Dorantes MD 09/02/2020 10:29 AM Central Time ([place] & [place]) [facility] Final Radiology Report Call: [phone] assistance Online chat: [email or web address] Name: YARA ROMANO Age: 89Years F Date: 09/02/2020 SSN: -- : [id number] Study: CT HEAD WO CONT Requesting Physician: Gabriela Will Images: [id number] Addl Studies: Provided Clinical History: Fall; Syncopal event Contrast: Without Contrast Medium: Contrast Amount: Contrast Method: Page 1 of 2 PROCEDURE INFORMATION: Exam: CT Head Without Contrast Exam date and time: 09/02/2020 10:07 AM Age: 89 years old Clinical indication: Injury or trauma; Fall; Blunt trauma (contusions or hematomas); With loss of consciousness; Loss of consciousness 31-59 minutes; Additional info: Fall; Syncopal event TECHNIQUE: Imaging protocol: Computed tomography of the head without contrast. Radiation optimization: All CT scans at this facility use at least one of these dose optimization techniques: automated exposure control; mA and/or kV adjustment per patient size (includes targeted exams where dose is matched to clinical indication); or iterative reconstruction. COMPARISON: CT Head wo Cont 11/28/2019 10:32 AM FINDINGS: Brain: Prominent sulci. Patchy hypodensity of the cerebral white matter which are nonspecific but likely secondary to microangiopathic changes. Scattered subarachnoid hemorrhage is present in the right frontal and frontotemporal region and in the right parietal region. Cerebral ventricles: The ventricles are prominent secondary to diffuse volume loss/atrophy. Bones/joints: Unremarkable. No acute fracture. Paranasal sinuses: See "Nasal cavity" finding. Mastoid air cells: Visualized mastoid air cells are well aerated. Soft tissues: Moderate right frontotemporal soft tissue swelling. Nasal cavity: There have been bilateral nasal antral windows. Mild mucoper iosteal thickening of the paranasal sinuses. IMPRESSION: REINALDO ROMANOIL | Final Radiology Report CONFIDENTIALITY STATEMENT This report is intended only for use by the referring physician, and only in accordance with law. If you received this in error, call [phone]. Page 2 of 2 1. Scattered subarachnoid hemorrhage is present in the right frontal and frontotemporal region and in the right parietal region. 2. Remainder of findings as described above. These findings were discussed with Dr. Fraga at 11:25 a.m. EST. Thank you for allowing us to participate in the care of your patient. Dictated and Authenticated by: Emily Dorantes MD 09/02/2020 10:26 AM Central Time ([place] & [place]) - Re-Assessments/Exams Free Text/Narrative Re-Assessment/Exam: 09/02/20 10:45 CSpine Cleared; C-Collar Removed 09/02/20 10:[address] [facility] via [place] Departure - Departure Time of Disposition: 11:15 Disposition: DC/Tfer to Acute Hospital 02 Clinical Impression: Syncope and collapse - Discharge Information *PRESCRIPTION DRUG MONITORING PROGRAM REVIEWED*: Not Applicable *COPY OF PRESCRIPTION DRUG MONITORING REPORT IN PATIENT [place]LE[place]: Not Applicable Forms: ED Department Discharge, Interfacility Transfer EMTALA Sepsis Event Note (ED) - Focused Exam Vital Signs: Vital Signs Temp Pulse Pulse Resp BP BP Pulse Ox 09/02/20 09:55 150 H 165/71 H 09/02/20 09:45 97.3 F 148 H 16 132/79 97 09/02/20 09:26 97.3 F 180 H 14 208/94 H 98 - My Orders Last 24 Hours: My Active Orders 09/02/20 09:30 EKG Documentation Completion [RC] STAT UA W/BING RFLX IF INDICATED [URIN] Stat 09/02/20 09:33 Chest 1V Frontal [CR] Urgent 09/02/20 09:40 CULTURE BLOOD [BC] Stat 09/02/20 10:20 EKG Documentation Completion [RC] STAT - Assessment/Plan Last 24 Hours: My Active Orders 09/02/20 09:30 EKG Documentation Completion [RC] STAT UA W/BING RFLX IF INDICATED [URIN] Stat 09/02/20 09:33 Chest 1V Frontal [CR] Urgent 09/02/20 09:40 CULTURE BLOOD [BC] Stat 09/02/20 10:20 EKG Documentation Completion [RC] STAT
[2020-09-02] MEDS ORDERED: Metoprolol Tartrate 5 MG/5 ML SDV IVPUSH ONE (09:46)
--- NOTE | 2020-09-02 10:26 | CT ---
PROCEDURE INFORMATION: Exam: CT Head Without Contrast Exam date and time: 09/02/2020 10:07 AM Age: 89 years old Clinical indication: Injury or trauma; Fall; Blunt trauma (contusions or hematomas); With loss of consciousness; Loss of consciousness 31-59 minutes; Additional info: Fall; Syncopal event TECHNIQUE: Imaging protocol: Computed tomography of the head without contrast. Radiation optimization: All CT scans at this facility use at least one of these dose optimization techniques: automated exposure control; mA and/or kV adjustment per patient size (includes targeted exams where dose is matched to clinical indication); or iterative reconstruction. COMPARISON: CT Head wo Cont 11/28/2019 10:32 AM FINDINGS: Brain: Prominent sulci. Patchy hypodensity of the cerebral white matter which are nonspecific but likely secondary to microangiopathic changes. Scattered subarachnoid hemorrhage is present in the right frontal and frontotemporal region and in the right parietal region. Cerebral ventricles: The ventricles are prominent secondary to diffuse volume loss/atrophy. Bones/joints: Unremarkable. No acute fracture. Paranasal sinuses: See "Nasal cavity" finding. Mastoid air cells: Visualized mastoid air cells are well aerated. Soft tissues: Moderate right frontotemporal soft tissue swelling. Nasal cavity: There have been bilateral nasal antral windows. Mild mucoperiosteal thickening of the paranasal sinuses. IMPRESSION: 1. Scattered subarachnoid hemorrhage is present in the right frontal and frontotemporal region and in the right parietal region. 2. Remainder of findings as described above. These findings were discussed with Dr. Fraga at 11:25 a.m. EST.
[2020-09-02 10:28] LABS: ANION GAP 12.4 mEq/L (7-13); CHLORIDE,CL 101 mmol/L (98-107); SODIUM,NA 138 mmol/L (136-145)
--- NOTE | 2020-09-02 10:29 | CT ---
PROCEDURE INFORMATION: Exam: CT Cervical Spine Without Contrast Exam date and time: 09/02/2020 10:07 AM Age: 89 years old Clinical indication: Injury or trauma; Fall; Blunt trauma; Additional info: Syncopal event TECHNIQUE: Imaging protocol: Computed tomography images of the cervical spine without contrast. Radiation optimization: All CT scans at this facility use at least one of these dose optimization techniques: automated exposure control; mA and/or kV adjustment per patient size (includes targeted exams where dose is matched to clinical indication); or iterative reconstruction. COMPARISON: CT Cervical Spine wo Cont 11/28/2019 10:32 AM FINDINGS: Vertebrae: Hypertrophic changes are present involving the dens and anterior arch of C1. Discs/Spinal canal/Neural foramina: Moderate to marked disc space narrowing C2-C6 with small anterior and posterior osteophytes. Soft tissues: Unremarkable. Sinuses: Mild mucoperiosteal thickening of the paranasal sinuses. Nasopharynx: There have been bilateral nasal antral windows. Lungs: Masslike scarring in the lung apices. IMPRESSION: No evidence of cervical spine fracture. Remainder of findings as described above.
[2020-09-02 10:30] LABS: PTT,PARTIAL THROMBOPLSTIN TIME 24.1 SEC (22.0-34.0)
--- NOTE | 2020-09-02 11:17 | CR ---
PROCEDURE INFORMATION: Exam: XR Chest, 1 View Exam date and time: 09/02/2020 11:03 AM Age: 89 years old Clinical indication: Chest pain TECHNIQUE: Imaging protocol: XR of the chest Views: 1 view. COMPARISON: CR Chest 1V Frontal 11/08/2019 7:32 PM FINDINGS: Lungs: Hyperinflation and increased interstitial markings suggestive of COPD. Pleural space: Unremarkable. No pleural effusion. No pneumothorax. Heart/Mediastinum: Unremarkable. No cardiomegaly. Bones/joints: Mild degenerative changes of the shoulder joints. IMPRESSION: Hyperinflation and increased interstitial markings suggestive of COPD.
== END 2020-09-02 11:42 ==
LOC: DL.ED 09:26
DX: R55 Syncope and collapse (principal); S00.03XA Contusion of scalp, initial encounter; M79.602 Pain in left arm; I10 Essential (primary) hypertension; E78.00 Pure hypercholesterolemia, unspecified; I25.2 Old myocardial infarction; K21.9 Gastro-esophageal reflux disease without esophagitis; I48.91 Unspecified atrial fibrillation; M19.90 Unspecified osteoarthritis, unspecified site; Z88.1 Allergy status to other antibiotic agents; Z88.8 Allergy status to other drugs, medicaments and biological substances; Z91.040 Latex allergy status; Z88.2 Allergy status to sulfonamides; Z91.048 Other nonmedicinal substance allergy status; Z79.82 Long term (current) use of aspirin; Z79.02 Long term (current) use of antithrombotics/antiplatelets; Z79.899 Other long term (current) drug therapy; W18.30XA Fall on same level, unspecified, initial encounter; Y93.01 Activity, walking, marching and hiking; Y92.129 Unspecified place in nursing home as the place of occurrence of the external cause; Z20.828 Contact with and (suspected) exposure to other viral communicable diseases
CPT/HCPCS: 36415; 70450; 71045; 72125; 80053; 83605; 84484; 85025; 85610; 85730; 87040; 93005; 96374; 99285-25; J3490; U0002